=== PATIENT | female | born 1990 | race African-American/Black ===

== ENCOUNTER 2020-12-17 11:27 | Emergency (ER) | payer OTHER ==
[~2020-12-17] VITALS: Ht 162.6 cm; Wt 56.7 kg
[~2020-12-17 11:27] MED LIST: ACCUNEB SO1.25 MG/1; ADVAIR 100-501 EACH; ADVAIR 250-501 EACH INH; ALBUTEROL2.5 MG/31 IH; ALBUTEROL2.5 MG/31 INH; APAP/CODEINE ELI5 M1 OR; AZITHROMYCIN 2250 MG PO; FLAGYL500 MG PO; IBUPROFEN 600600 M1 PO; KEFLEX500 MG PO; MEDROLDOSEPACK PO; MIRALAX255 GM PO; NAPROSYN500 MG PO; NOHOMEMEDICATIONS; NORCO 5-325 TA1 EACH PO; PHENERGAN 25 MG25 M1 PO; PREDNISONE 20 M20 MG PO; PRENATAL; PROAIR HFA8.5 GM IH; TRAMADOL 50 MG50 MG PO; TYLENOL325 MG PO; ULTRAM 50MG TAB50 MG PO; VENTOLIN HFA 1818 GM INH; VENTOLIN HFA INH8 GM IH; VICODIN 5-5001 EACH PO; VISTARIL 25 MG25 M1 PO; ZOFRAN ODT4 MG PO; ZOFRAN4 MG PO
[2020-12-17] MEDS ORDERED: PROAIR HFA8.5 GM INH (11:41)
[2020-12-17] MEDS ORDERED: PRENATABS RX T1 EAC1 PO (11:41)
[2020-12-17 12:07] LABS: ABSOLUTE NEUTROPHILS 5.8 thou/uL (1.4-8.2); BASOPHILS 0.4 % (0.0-2.0); EOSINOPHILS 0.1 % (0.0-3.0); HEMATOCRIT 43.6 % (37.0-47.0); HEMOGLOBIN 14.8 gm/dL (12.0-15.0); MCH 30.9 pg (26.0-34.0); MONOCYTES 6.2 % (1.0-8.0); PLATELET COUNT 237 thou/uL (150-400); POLYS 72.3 % (36.0-66.0); RBC 4.79 mil/uL (4.20-5.00); RDW 13.1 % (10.5-14.5)
[2020-12-17 12:09] LABS: URINE BILIRUBIN NEGATIVE (Negative); URINE BLOOD TRACE (Negative); URINE CLARITY CLOUDY; URINE COLOR YELLOW; URINE GLUCOSE-RANDOM* NEGATIVE (Negative); URINE KETONES NEGATIVE (Negative); URINE NITRITE-REFLEX NEGATIVE (Negative); URINE PROTEIN (DIPSTICK) NEGATIVE (Negative); URINE UROBILINOGEN 0.2 E.U./dl (0.2-1.0)
[2020-12-17 12:10] LABS: URINE LEUKOCYTES-REFLEX 3+ (Negative)
[2020-12-17 12:16] LABS: ANION GAP 11 mmol/L (7-16); BUN 11 mg/dL (7-18); CALCIUM 9.1 mg/dL (8.5-10.1); CHLORIDE 106 mmol/L (98-107); CO2 24 mmol/L (21-32); CREATININE 0.7 mg/dL (0.6-1.0); GLUCOSE 103 mg/dL (74-106); POTASSIUM 3.5 mmol/L (3.5-5.1); SODIUM 141 mmol/L (136-145)
[2020-12-17 12:25] LABS: ALBUMIN 4.3 g/dL (3.4-5.0); LIPASE 49 U/L (73-393); SGOT 11 U/L (15-37); SGPT 17 U/L (14-59); TOTAL BILIRUBIN 0.6 mg/dL (0.2-1.0); TOTAL PROTEIN 8.2 g/dL (6.4-8.2); TROPONIN-I <0.06 ng/mL (<0.06)
[2020-12-17 12:54] LABS: SQUAMOUS >10 Many /LPF (0-3)
[2020-12-17 12:55] LABS: URINE RBC 1-2 Rare /HPF (NONE SEEN); URINE WBC-REFLEX 6-15 Few /HPF (0-5)
[2020-12-17 12:56] LABS: CASTS None Seen /LPF (None Seen); CRYSTALS None Seen /LPF (None Seen)
--- NOTE | 2020-12-17 14:34 | EKG ---
[place] [address] [facility] [place] [address] ELECTROCARDIOGRAM REPORT Name: LRIAKINGA Room #: REG [facility]#: [id number] Admission: 12/17/20 Attend Phys: Discharge: Date of : 86 Report #: [id number] [facility] ED Test Date: 2020-12-17 Test Time: 11:56:47 Pat Name: KINGA LIRA Department: Room: Gender: F Human Resources Designate: hong : 1990 Requested By: Min Padilla Order Number: [id number] MD: Andrew Wilkerson Measurements Intervals [place] Rate: 93 P: 75 WA: 147 QRS: 22 QRSD: 90 T: 69 QT: 358 QTc: 446 Interpretive Statements Sinus rhythm Probable left atrial enlargement Compared to ECG 12/30/2012 15:03:27 No significant changes Electronically Signed On 12-17-2020 14:34:41 CDT by Andrew Wilkerson [email or web address] <ELECTRONICALLY SIGNED> By: Andrew Wilkerson MD, [facility] 12/17/20 1434 1156 [id number] Andrew Wilkerson MD, FACC /EPI
[2020-12-17 14:46] VITALS: BP 124/76
[2020-12-17] MEDS ORDERED: CEPHALEXIN500 MG PO (15:16)
== END 2020-12-17 15:48 | disposition home or self-care (01) ==
LOC: ER 11:27
PROVIDERS: Physician Assistant
DX: O26.51 Maternal hypotension syndrome, first trimester (principal); O23.41 Unspecified infection of urinary tract in pregnancy, first trimester; Z3A.01 Less than 8 weeks gestation of pregnancy; Z88.8 Allergy status to other drugs, medicaments and biological substances; Z88.6 Allergy status to analgesic agent; Z79.899 Other long term (current) drug therapy; Z98.890 Other specified postprocedural states

== ENCOUNTER 2021-04-30 08:28 | Emergency (ER) | payer OTHER ==
[~2021-04-30] VITALS: Ht 162.6 cm; Wt 53.1 kg
[~2021-04-30 08:28] MED LIST changes: +CEPHALEXIN500 MG PO; +PRENATABS RX T1 EAC1 PO; +PROAIR HFA8.5 GM INH
[2021-04-30 09:11] LABS: URINE BILIRUBIN NEGATIVE (Negative); URINE BLOOD 3+ (Negative); URINE CLARITY CLOUDY; URINE COLOR RED; URINE GLUCOSE-RANDOM* NEGATIVE (Negative); URINE KETONES 2+ (Negative); URINE LEUKOCYTES-REFLEX NEGATIVE (Negative); URINE NITRITE-REFLEX NEGATIVE (Negative); URINE PROTEIN (DIPSTICK) TRACE (Negative); URINE SPECIFIC GRAVITY 1.015 (1.005-1.035); URINE UROBILINOGEN 0.2 E.U./dl (0.2-1.0)
[2021-04-30 09:14] LABS: CASTS None Seen /LPF (None Seen); CRYSTALS None Seen /LPF (None Seen); SQUAMOUS 4-10 Moderate /LPF (0-3); URINE RBC >20 Many /HPF (NONE SEEN)
[2021-04-30 09:15] LABS: URINE WBC-REFLEX 6-15 Few /HPF (0-5)
[2021-04-30 09:19] LABS: ABSOLUTE NEUTROPHILS 5.4 thou/uL (1.4-8.2); BASOPHILS 0.2 % (0.0-2.0); EOSINOPHILS 0.2 % (0.0-3.0); HEMATOCRIT 41.1 % (37.0-47.0); HEMOGLOBIN 14.1 gm/dL (12.0-15.0); LYMPHOCYTES 20.5 % (24.0-44.0); MCHC 34.3 g/dL (28.0-37.0); MCV 87.5 fL (80.0-100.0); MONOCYTES 6.9 % (1.0-8.0); PLATELET COUNT 263 thou/uL (150-400); POLYS 72.2 % (36.0-66.0); RBC 4.69 mil/uL (4.20-5.00); RDW 13.1 % (10.5-14.5); WBC 7.5 thou/uL (4.0-11.0)
[2021-04-30 09:31] LABS: CALCIUM 9.1 mg/dL (8.5-10.1); CREATININE 0.6 mg/dL (0.6-1.0); POTASSIUM 3.6 mmol/L (3.5-5.1)
[2021-04-30 12:41] VITALS: BP 123/74
== END 2021-04-30 12:44 | disposition home or self-care (01) ==
LOC: ER 08:28
PROVIDERS: Student in an Organized Health Care Education/Training Program
DX: O20.8 Other hemorrhage in early pregnancy (principal); O99.511 Diseases of the respiratory system complicating pregnancy, first trimester; Z88.1 Allergy status to other antibiotic agents; Z88.8 Allergy status to other drugs, medicaments and biological substances